=== PATIENT | female | born 1990 | race Caucasian/White ===

== ENCOUNTER 2019-08-27 15:36 | Emergency (ER) | payer OTHER, SELFPAY ==
--- NOTE | 2019-08-27 15:46 | ED.GENADULT ---
HPI - General Adult General Chief complaint: Upper Respiratory Infection Stated complaint: fever cough and poss uti Time Seen by Provider: 08/27/19 15:46 Source: patient, family and RN notes reviewed History of Present Illness HPI narrative: Patient is a 28-year-old female that presents the urgent care with complaints of fever, cough, UTI symptoms. Patient states that she has had difficulty emptying her bladder for approximately 1 year and has never followed up with her PCP. Patient states that her symptoms worsen within the last 2 months and she is recently noticed some urinary frequency. Patient also reports of low-grade fever and nonproductive cough which started 2 days ago. Patient denies any use of [id number] medication. No other acute complaints. No acute distress noted. Patient read the plan of care. Related Data Home Medications Medication Instructions Recorded Confirmed Adderall 08/27/19 albuterol sulfate 08/27/19 Allergies Allergy/AdvReac Type Severity Reaction Status Date / Time No Known Allergies Allergy Unverified 08/27/19 16:09 Review of Systems Review of Systems: Narrative: CONSTITUTIONAL: Reports a fever EYES: Denies visual changes, redness, or discharge. ENT: Denies rhinorrhea, congestion, sore throat, or otalgia. CARDIOVASCULAR: Denies chest pain, palpitations, or edema. RESPIRATORY: Reports of nonproductive cough without dyspnea GASTROINTESTINAL: Denies abdominal pain, nausea, vomiting, or diarrhea. GENITOURINARY: Reports of urinary frequency, difficulty emptying SKIN: Denies rash or itching. MUSCULOSKELETAL: Denies back pain, joint pain, or myalgia. NEUROLOGIC: Denies headache, numbness, or weakness. All other systems reviewed are negative, except as documented in HPI. [facility] Family History Family History (Updated 04/01/16 @ 16:32 by DOCTOR UNKNOWN) Mother Patient's mother is in good health Father Patient's father is in good health Sibling Patient's sister is in good health Social History Social History Smoking status: Never smoker Second hand tobacco smoke exposure: No Alcohol intake: never Comments At the time of my signature, I reviewed and agree with the nursing past medical, surgical, social, and family history. There is no relevant family history pertinent to the patient complaint. Exam Narrative: Exam Narrative: GENERAL: This is a well-nourished, well-developed patient, in no apparent distress. HEAD: normocephalic, atraumatic. EYES: PERRL. Sclera clear/white. Vision is grossly intact. EARS: External ears normal, auditory canals clear and without drainage, TMs normal without perforation. Hearing grossly intact. NOSE: External nose normal with no obvious nasal discharge, nares without redness, no rhinorrhea. THROAT: Mucous membranes moist, posterior pharynx clear. Moderate postnasal drainage NECK: Neck supple CARDIOVASCULAR: Regular rate and rhythm without murmurs, gallops, or rubs. RESPIRATORY: Clear to auscultation. Breath sounds equal bilaterally. No wheezes, rales, or rhonchi. GASTROINTESTINAL: Abdomen soft, nondistended. Bowel sounds are hyperactive. SKIN: warm, intact with no suspicious lesions or rash, good texture and turgor. NEURO: awake, alert, and oriented to person, place and time. There were no obvious focal neurologic abnormalities. EXTREMITIES: No clubbing, cyanosis, or edema. BACK: Negative bilateral CVA tenderness Course Vital Signs Vital signs: Vital Signs Temperature 99.7 F H 08/27/19 15:48 Pulse Rate 105 H 08/27/19 15:48 Respiratory Rate 16 08/27/19 15:48 Blood Pressure 131/86 08/27/19 15:48 Pulse Oximetry 100 08/27/19 15:48 Temperature 99.7 F H 08/27/19 15:48 Pulse Rate 105 H 08/27/19 15:48 Respiratory Rate 16 08/27/19 15:48 Blood Pressure 131/86 08/27/19 15:48 Pulse Oximetry 100 08/27/19 15:48 Reviewed Medical Decision Making MDM Narrative Medical decision making narrative: [place]
[2019-08-27 15:48] VITALS: BP 131/86; PULSE 105; RESP 16; TEMP 37.6; O2SAT 100
== END 2019-08-27 16:22 | disposition home or self-care (01) ==
PROVIDERS: Emergency Provider Nurse Practitioner Family; PCP Family Medicine
DX: J06.9 Acute upper respiratory infection, unspecified (principal); N39.0 Urinary tract infection, site not specified; J45.909 Unspecified asthma, uncomplicated
CPT/HCPCS: 81003; 87086; 99213; G0463

== ENCOUNTER 2019-10-23 07:27 | Emergency (ER) | payer OTHER, SELFPAY ==
--- NOTE | ~2019-10-23 | CT_ITS ---
EXAMINATION: CT abdomen pelvis wo con DATE: 10/23/2019 08:18 INDICATION: Nephrolithiasis presenting with left flank pain and hematuria. TECHNIQUE: Computed tomography (CT) of the abdomen and pelvis was performed without intravenous contr ast. Automated exposure control and iterative reconstruction technique were employed. The dose-length product was 164.56 mGy-cm. COMPARISON: 09/07/2017 FINDINGS: Lung bases are clear. Heart size is normal. No pericardial or pleural effusion. Small sliding-type hi atal hernia. Liver, gallbladder, spleen, pancreas, right kidney and bilateral adrenal glands are norm al. Mild left hydronephrosis with a 3 mm, currently nonobstructing stone positioned in the dependent aspect of the mildly dilated left renal pelvis. There is mild stranding in the region of the left ure teropelvic junction. The more distal left ureter appears unremarkable with no dilation or evident ure teral stones. The decompressed bladder appears normal. 4 cm left adnexal cyst. Right adnexa and uteru s are normal. Bowels including the appendix are normal. Minimal likely physiologic free fluid in the cul-de-sac. No free intraperineal gas. No pathologically enlarged abdominal or pelvic lymphadenopathy . Mild thoracolumbar dextrocurvature. Small fat-containing right inguinal hernia. IMPRESSION: 1. Mild left hydronephrosis with 3 mm, currently nonobstructing stone in the left renal pelvis. 2. Small sliding-type hiatal hernia. 3. 4.0 cm left adnexal cyst. 4. Small fat-containing right inguinal hernia. Reviewed, dictated and finalized at location A. IMPRESSION: 1. Mild left hydronephrosis with 3 mm, currently nonobstructing stone in the le ft renal pelvis. 2. Small sliding-type hiatal hernia. 3. 4.0 cm left adnexal cyst. 4. Small fat-containing right inguinal hernia.
[2019-10-23 07:31] VITALS: BP 163/99; PULSE 76; RESP 18; TEMP 36.7; O2SAT 99
--- NOTE | 2019-10-23 07:43 | ED.FEMALEGU ---
HPI - Female Genitourinary General Chief complaint: Urogenital-Female Stated complaint: left flank pain Time Seen by Provider: 10/23/19 07:32 History of Present Illness HPI Narrative: Patient is a 29-year-old female who presents ER with left-sided flank pain. Sudden onset at 5 AM this morning, sharp in quality. Associated with nausea and vomiting. No relief with Tylenol. No aggravating or alleviating factors that she can find. Similar to previous kidney stone she has had in the past. Increased urinary frequency. Related Data Home Medications Medication Instructions Recorded Confirmed Adderall 08/27/19 albuterol sulfate 08/27/19 Allergies Allergy/AdvReac Type Severity Reaction Status Date / Time No Known Allergies Allergy Verified 10/23/19 07:34 Review of Systems Review of Systems: All systems reviewed & are unremarkable except as noted in HPI and below Gastrointestinal: Gastrointestinal: Denies abdominal pain, Reports nausea and Reports vomiting Genitourinary: Genitourinary: Denies hematuria, Reports nocturia, Denies dysuria and Reports flank pain PMFSH Past Medical History Medical History (Updated 10/23/19 @ 10:02 by Collin Yi MD) Kidney stones Surgical History Surgical History (Updated 10/23/19 @ 07:45 by Collin Yi MD) History of bilateral fallopian tube excision Family History Family History Mother Patient's mother is in good health Father Patient's father is in good health Sibling Patient's sister is in good health Social History Social History Smoking status: Never smoker Second hand tobacco smoke exposure: No Alcohol intake: never Gender identity (if verbalized by the patient): Female Exam Narrative: Exam Narrative: GENERAL: Uncomfortable-appearing, well-nourished, and in no acute distress. HEAD: Normocephalic, atraumatic. CHEST: Clear to auscultation. No respiratory distress. HEART: Regular rate and rhythm. Normal peripheral pulses. ABDOMEN: Soft, nontender, nondistended. No CVA tenderness. EXTREMITIES: Normal range of motion. No edema. SKIN: Warm, dry, no rash. NEURO: Alert and oriented x3. PSYCH: Normal mood and affect. Course Course Emergency Course: Pain improved. Informed of results. Will give antibiotics for home. Vital Signs Vital signs: Vital Signs Temperature 98.1 F 10/23/19 07:31 Pulse Rate 76 10/23/19 07:31 Respiratory Rate 18 10/23/19 07:31 Blood Pressure 163/99 H 10/23/19 07:31 Pulse Oximetry 99 10/23/19 07:31 Temperature 98.1 F 10/23/19 07:31 Pulse Rate 60 10/23/19 09:35 Respiratory Rate 18 10/23/19 09:35 Blood Pressure 127/78 10/23/19 09:35 Pulse Oximetry 100 10/23/19 09:35 MDM - Female Genitourinary Lab Data Result diagrams: 10/23/19 07:44 10/23/19 07:44 Labs: Lab Results 10/23/19 10/23/19 10/23/19 Range/Units 07:41 07:44 07:44 WBC 11.0 H (4.5-10.0) K/mm3 RBC 4.39 (4.2-5.4) M/mm3 Hgb 12.9 (12.0-15.0) g/dL Hct 38.0 (37.0-47.0) % MCV 86.6 (80-100) fl MCH 29.4 (26-34) pg MCHC 33.9 (32-36) g/dl RDW 13.4 (11.5-14.5) % Plt Count 320 (150-375) k/mm3 MPV 8.9 (7.4-10.4) fl Immature Gran % (Auto) 0.4 (0-0.5) % Neut % (Auto) 73.2 H (45.5-73.1) % Lymph % (Auto) 18.7 (18.3-44.2) % Churchill % (Auto) 6.6 (2.6-8.5) % Eos % (Auto) 0.8 (0-4.4) % Baso % (Auto) 0.3 (0.2-1.2) % Lymph # (Auto) 2.05 (0.9-3.2) K/mm3 Churchill # (Auto) 0.7 H (0.1-0.6) K/mm3 Eos # (Auto) 0.1 (0-0.3) K/mm3 Baso # (Auto) 0.0 (0.0-0.1) K/mm3 Abs Immat Gran (auto) 0.04 H (0.00-0.031) K/mm3 Absolute Neuts (auto) 8.1 H (1.3-6.7) K/mm3 Absolute Nucleated RBC 0.0 (0.0-0.012) K/mm3 Nucleated RBC % 0.0 (0.0-0.2) % Sodium 137 (137-145) mmol/L Potassium 3.9 (3.4
[2019-10-23 07:49] LABS: Basophils Percent Auto 0.3 % (0.2-1.2); Eosinophils Absolute Auto 0.1 K/mm3 (0-0.3); Eosinophils Percent Auto 0.8 % (0-4.4); Hemoglobin 12.9 g/dL (12.0-15.0); Immature Granulocyte Absolute 0.04 K/mm3 (0.00-0.031); Immature Granulocyte Percent A 0.4 % (0-0.5); Lymphocytes Absolute Auto 2.05 K/mm3 (0.9-3.2); Lymphocytes Percent Auto 18.7 % (18.3-44.2); Mean Corpuscular HGB Conc 33.9 g/dl (32-36); Mean Corpuscular Hemoglobin 29.4 pg (26-34); Mean Corpuscular Volume 86.6 fl (80-100); Mean Platelet Volume 8.9 fl (7.4-10.4); Monocytes Absolute Auto 0.7 K/mm3 (0.1-0.6); Monocytes Percent Auto 6.6 % (2.6-8.5); Neutrophils Absolute Auto 8.1 K/mm3 (1.3-6.7); Neutrophils Percent Auto 73.2 % (45.5-73.1); Platelet Count Result 320 k/mm3 (150-375); Red Blood Count 4.39 M/mm3 (4.2-5.4); Red Cell Distribution Width 13.4 % (11.5-14.5)
[2019-10-23] MEDS: MORPHINE SULFATE 4 MG/ML INJ IV PUSH (07:50)
[2019-10-23] MEDS: ONDANSETRON INJ 4 MG/2 ML VIAL IV PUSH (07:50)
[2019-10-23] MEDS: SODIUM CHLORIDE 0.9% IV 1,000 ML 999 ML IV CONT (07:50)
[2019-10-23 07:58] LABS: Add Urine Microscopic? YES; Appearance Urine Cloudy (Clear); Bacteria Urine Trace /hpf; Bilirubin Urine Negative (Negative); Blood Urine 1+ (Negative); Color Urine Yellow (Yellow); Glucose Urine UA Negative (Negative); Ketones Urine 1+ mg/dL (Negative); Leukocyte Esterase Ur 3+ LEU/UL (Negative); Mucus Urine Heavy /lpf; Nitrate Urine Negative (Negative); Protein Urine 1+ mg/dL (Negative); RBC Urine 51-75 /hpf (0-2); Specific Grav Ur 1.029 (1.001-1.035); Squamous Epithelial Cell Urine Many /hpf (Few); Urobilinogen Urine Negative mg/dL (<2.0); WBC Urine 21-30 /hpf
[2019-10-23 08:01] LABS: Blood Urea Nitrogen 9 mg/dL (7-17); Calcium 9.4 mg/dL (8.4-10.2); Carbon Dioxide 23 mmol/L (22-30); Chloride 105 mmol/L (98-107); Estimated Glomerular Filt Rate > 60; Glucose 108 mg/dL (65-105); Potassium 3.9 mmol/L (3.4-5.0); Sodium 137 mmol/L (137-145)
[2019-10-23 09:35] VITALS: BP 127/78; PULSE 60; RESP 18; O2SAT 100
[2019-10-23 10:15] VITALS: BP 124/56; PULSE 70; RESP 12; O2SAT 99
== END 2019-10-23 10:24 | disposition home or self-care (01) ==
PROVIDERS: Emergency Provider Emergency Medicine; PCP Family Medicine
DX: N39.0 Urinary tract infection, site not specified (principal); Z87.442 Personal history of urinary calculi; N13.2 Hydronephrosis with renal and ureteral calculous obstruction; K44.9 Diaphragmatic hernia without obstruction or gangrene; K40.90 Unilateral inguinal hernia, without obstruction or gangrene, not specified as recurrent; N94.89 Other specified conditions associated with female genital organs and menstrual cycle
CPT/HCPCS: 36415; 74176; 80048; 81001; 81025; 85025; 87086; 87088; 96361; 96374; 96375; 99284; J2270; J2405; J7030

== ENCOUNTER 2019-11-16 12:07 | Outpatient (CLI) | payer OTHER, SELFPAY ==
--- NOTE | ~2019-11-16 | XR_ITS ---
EXAMINATION: XR abdomen/kub 1V INDICATION: Abdominal pain TECHNIQUE: Supine views of the abdomen were obtained on 2 radiographs. COMPARISON: CT, 10/23/2019 FINDINGS: A 3 mm stone projects in the expected location of the left renal pelvis, similar to the com parison examination. A moderate volume of colonic stool is present. There are no dilated loops of bow el. IMPRESSION: 1. 3 mm stone projecting in the expected location of the left renal pelvis. Reviewed, dictated and finalized at location A.
== END 2019-11-16 12:08 | disposition home or self-care (01) ==
LOC: ANHIMG 12:14
PROVIDERS: PCP Family Medicine; Visit Provider Physician Assistant
DX: R10.9 Unspecified abdominal pain (principal); N20.0 Calculus of kidney
CPT/HCPCS: 74018

== ENCOUNTER 2019-12-26 12:00 | Outpatient (CLI) | payer OTHER, SELFPAY ==
--- NOTE | ~2019-12-26 | XR_ITS ---
EXAMINATION: XR abdomen/kub 1V INDICATION: Left-sided kidney stone TECHNIQUE: Supine views of the abdomen were obtained on 2 radiographs. COMPARISON: 11/16/2019 FINDINGS: Bowel contents project over the kidneys limiting sensitivity for renal stones. A previously described 3 mm stone projecting over the left renal pelvis is not definitely identified. No stones a re seen along the expected courses of the ureters or within the bladder. The bowel gas pattern is nor mal. IMPRESSION: 1. No definite urinary tract calculi seen, kidney somewhat obscured by bowel contents. Reviewed, dictated and finalized at location A. IMPRESSION: 1. No definite urinary tract calculi seen, kidney somewhat obscured by bowel co ntents.
== END 2019-12-26 12:01 | disposition home or self-care (01) ==
PROVIDERS: PCP Family Medicine; Visit Provider Nurse Practitioner Adult Health
DX: N20.0 Calculus of kidney (principal)
CPT/HCPCS: 74018

== ENCOUNTER 2020-01-02 11:16 | Outpatient (CLI) | payer OTHER, SELFPAY ==
--- NOTE | ~2020-01-02 | XR_ITS ---
XR abdomen/kub 1V 01/02/2020 11:38 Indication: Left flank pain Procedure: KUB Comparison: 12/26/2019 Findings: There is a small left renal stone. Bowel gas pattern is nonobstructive. Moderate colonic fe esau loading. No acute osseous abnormality. Impression: 1: Left nephrolithiasis. Reviewed, dictated and finalized at location B. Impression: 1: Left nephrolithiasis.
== END 2020-01-02 11:17 | disposition home or self-care (01) ==
LOC: ANHIMG 11:21
PROVIDERS: PCP Family Medicine; Visit Provider Nurse Practitioner Adult Health
DX: N20.0 Calculus of kidney (principal)
CPT/HCPCS: 74018

== ENCOUNTER 2020-05-16 11:44 | Emergency (ER) | payer OTHER, SELFPAY ==
--- NOTE | ~2020-05-16 | XR_ITS ---
XR chest 1V portable DATE: 05/16/2020 12:46 INDICATION: Cough, burning feeling and lungs TECHNIQUE: Portable AP chest on 05/16/2020 at 1232 hours COMPARISON: 12/06/2018 PA and lateral chest FINDINGS: Normal heart size. No hilar or mediastinal enlargement. No pulmonary infiltrate or consolid ation, pleural effusion or pulmonary vascular congestion or pneumothorax. IMPRESSION: No active cardiopulmonary disease Reviewed, dictated and finalized at location A. PHONE QUOTATION CLERK
[2020-05-16 12:01] VITALS: BP 114/86; PULSE 102; RESP 15; TEMP 36.9; O2SAT 100
--- NOTE | 2020-05-16 12:02 | ED.URI ---
HPI - URI/Sore Throat General Chief Complaint: Upper Respiratory Infection Stated Complaint: diff breathing/n/d Time Seen by Provider: 05/16/20 12:02 Source: patient Mode of arrival: ambulatory Limitations: no limitations History of Present Illness HPI Narrative: Patient is a 29 yo female with a history of asthma who presents for evaluation of congestion, myalgias, nausea and diarrhea. Patient denying any chest pain or abdominal pain. She does report some shortness of breath this seems different than her typical asthma. She denies any wheezing. Patient states she is nearly out of her current albuterol inhaler. She denies fever today. She states her daughter has been sick with similar symptoms and is pending the results of her Covid test. Patient denies any loss of sense of taste or smell but does report decreased oral intake due to nausea and lack of appetite. She denies dysuria or hematuria. She reports watery diarrhea without blood or mucus present. No pleuritic pain. No rashes. Related Data Home Medications Medication Instructions Recorded Confirmed albuterol sulfate [ProAir HFA] 1 inh INHALATION QID PRN 01/09/20 01/09/20 dextroamphetamine-amphetamine 30 mg PO DAILY 01/09/20 01/09/20 [Adderall XR] dextroamphetamine-amphetamine 10 mg PO BID 01/09/20 01/09/20 [Adderall] venlafaxine [Effexor XR] 150 mg PO QPM 01/09/20 01/09/20 Allergies Allergy/AdvReac Type Severity Reaction Status Date / Time hydrocodone [From Vicodin] AdvReac Intermediate Nausea and Verified 01/09/20 10:52 Vomiting Review of Systems Review of Systems: Narrative: CONSTITUTIONAL: Denies fever, reports intermittent chills EYES: Denies visual changes, redness, or discharge. ENT: Reports rhinorrhea and congestion CARDIOVASCULAR: Denies chest pain, palpitations, or edema. RESPIRATORY: Reports dry cough and intermittent shortness of breath, worse with exertion GASTROINTESTINAL: Denies abdominal pain, reports nausea and diarrhea GENITOURINARY: Denies dysuria or hematuria. SKIN: Denies rash or itching. MUSCULOSKELETAL: Denies back pain, joint pain, reports myalgias NEUROLOGIC: Denies headache, numbness, reports feeling weak PMFSH Past Medical History Medical History Asthma Kidney stones Surgical History Surgical History History of bilateral fallopian tube excision Family History Family History Mother Patient's mother is in good health Father Patient's father is in good health Sibling Patient's sister is in good health Social History Social History Smoking status: Never smoker Second hand tobacco smoke exposure: No Alcohol intake: never Substance use: never Substance use type: does not use Gender identity (if verbalized by the patient): Female Spiritual care concerns: No Exam Narrative: Exam Narrative: GENERAL: Awake, alert, conversant HEAD: Normocephalic, atraumatic. EYES: PERRLA and EOMI. ENT: Nares clear, no rhinorrhea or epistaxis. Mucous membranes moist. NECK: Supple. CHEST: No respiratory distress, breathing even and non labored, lungs are clear to auscultation bilaterally, no wheezing HEART: Regular rate, sinus rhythm ABDOMEN:Non distended, non tender EXTREMITIES: Normal range of motion. No edema. SKIN: Warm, dry, no rash. NEURO:No focal deficits. Alert and oriented x3 Course Vital Signs Vital signs: Vital Signs Temperature 36.9 C 05/16/20 12:01 Pulse Rate 102 H 05/16/20 12:01 Respiratory Rate 15 05/16/20 12:01 Blood Pressure 114/86 05/16/20 12:01 Pulse Oximetry 100 05/16/20 12:01 Temperature 36.9 C 05/16/20 12:01 Pulse Rate 102 H 05/16/20 12:01 Respiratory Rate 15 05/16/20 12:01 Blood Pressure 114/86 05/16/20 12:01 Pulse Oximetry 100
[2020-05-16 12:06] VITALS: O2SAT 100
[2020-05-16] MEDS: ACETAMINOPHEN 500 MG TABLET 1000 MG PO (12:21)
[2020-05-16] MEDS: ONDANSETRON HCL ODT 4 MG TABLET PO (12:21)
[2020-05-16 12:41] LABS: Basophils Percent Auto 0.1 % (0.2-1.2); Eosinophils Absolute Auto 0.1 K/mm3 (0-0.3); Eosinophils Percent Auto 0.9 % (0-4.4); Hematocrit 38.6 % (37.0-47.0); Hemoglobin 12.5 g/dL (12.0-15.0); Immature Granulocyte Absolute 0.06 K/mm3 (0.00-0.031); Immature Granulocyte Percent A 0.4 % (0-0.5); Lymphocytes Absolute Auto 1.29 K/mm3 (0.9-3.2); Lymphocytes Percent Auto 8.8 % (18.3-44.2); Mean Corpuscular HGB Conc 32.4 g/dl (32-36); Mean Corpuscular Hemoglobin 28.2 pg (26-34); Mean Corpuscular Volume 87.1 fl (80-100); Mean Platelet Volume 8.2 fl (7.4-10.4); Monocytes Absolute Auto 0.6 K/mm3 (0.1-0.6); Neutrophils Absolute Auto 12.6 K/mm3 (1.3-6.7); Neutrophils Percent Auto 85.8 % (45.5-73.1); Platelet Count Result 405 k/mm3 (150-375); Red Blood Count 4.43 M/mm3 (4.2-5.4); Red Cell Distribution Width 13.7 % (11.5-14.5); White Blood Count 14.7 K/mm3 (4.5-10.0)
[2020-05-16 13:05] LABS: Alanine Aminotransferase 45 U/L (4-35); Alkaline Phosphatase 119 U/L (38-126); Anion Gap 10 mmol/L (8-16); Aspartate Amino Transferase 35 U/L (14-36); Bilirubin,Total 0.3 mg/dL (0.2-1.3); Blood Urea Nitrogen 13 mg/dL (7-17); Carbon Dioxide 24 mmol/L (22-30); Chloride 105 mmol/L (98-107); Estimated CRCL calculation 122 ml/min; Estimated Glomerular Filt Rate > 60; Glucose 114 mg/dL (65-105); Potassium 3.8 mmol/L (3.4-5.0); Sodium 139 mmol/L (137-145)
[2020-05-17 17:05] LABS: SARS-CoV-2 RNA PCR Negative
== END 2020-05-16 13:31 | disposition home or self-care (01) ==
PROVIDERS: Emergency Provider Emergency Medicine; PCP Family Medicine
DX: J06.9 Acute upper respiratory infection, unspecified (principal); Z20.828 Contact with and (suspected) exposure to other viral communicable diseases; J45.909 Unspecified asthma, uncomplicated; Z87.442 Personal history of urinary calculi
CPT/HCPCS: 36415; 71045; 80053; 85025; 87635; 87804; 99283; A9270; C9803; U0003

== ENCOUNTER 2021-02-12 01:46 | Day surgery (SDC) | payer OTHER, SELFPAY ==
[2021-01-31 15:04] VITALS: BMI 32.3
--- NOTE | 2021-02-11 13:25 | PM.HPGS ---
History of Present Illness History of Present Illness Consent: Risks, benefits, and alternatives have been discussed and questions answered. Patient agrees to proceed with procedure. Chief complaint: GERD Narrative: Wendi De La Vega is a 30 year old female With a long history of acid reflux symptoms. She has been on famotidine for the past year and also has taken omeprazole in the past year. Occasionally she has some discomfort with swallowing. She becomes gaggy and her throat feels dry. This can lead to vomiting. Denies food getting stuck. Review of Systems Review of Systems: All systems reviewed & are unremarkable except as noted in HPI and below PMFSH Past Medical History Medical History Anxiety Asthma Depression GERD (gastroesophageal reflux disease) History of nephrolithotomy with removal of calculi Hypertension Kidney stones Obesity (BMI 30.0-34.9) Surgical History Surgical History History of bilateral fallopian tube excision Family History Family History Mother Patient's mother is in good health Father Patient's father is in good health Sibling Patient's sister is in good health Social History Social History Smoking status: Never smoker Second hand tobacco smoke exposure: No Alcohol intake: never Substance use: never Substance use type: does not use Living arrangements: with family Gender identity (if verbalized by the patient): Female Spiritual care concerns: No Meds Home Medications and Allergies Home Medications Medication Instructions Recorded Confirmed Type dextroamphetamine-amphetamine 30 mg PO DAILY 01/09/20 01/31/21 History [Adderall XR] dextroamphetamine-amphetamine 10 mg PO BID 01/09/20 01/31/21 History [Adderall] venlafaxine [Effexor XR] 150 mg PO QPM 01/09/20 01/31/21 History acetaminophen 500 mg PO Q6H PRN #30 cap 05/16/20 01/31/21 Rx venlafaxine 75 mg tablet,extended 75 mg PO QPM 11/01/20 01/31/21 History release 24 hr albuterol sulfate 90 mcg/actuation 1 inh INHALATION Q4H PRN #18 gm 11/07/20 01/31/21 Rx aerosol inhaler lisinopril 2.5 mg tablet 2.5 mg PO DAILY #30 tablet 12/03/20 01/31/21 Rx budesonide-formoterol HFA 160 2 puff INHALATION BID #10.2 g 01/10/21 01/31/21 Rx mcg-4.5 mcg/actuation aerosol inhaler buspirone 15 mg tablet 15 mg PO BID 01/17/21 01/31/21 History famotidine 20 mg tablet 20 mg PO DAILY 01/17/21 01/31/21 History omeprazole 10 mg capsule,delayed 10 mg PO DAILY 01/17/21 01/31/21 History release Allergies Allergy/AdvReac Type Severity Reaction Status Date / Time hydrocodone [From Vicodin] AdvReac Intermediate Nausea and Verified 02/12/21 11:21 Vomiting Exam Const: General: alert Orientation/consciousness: patient oriented x3 Resp: Auscultation: clear to auscultation bilaterally Cardio: Rhythm: regular rhythm GI: GI Palp: Yes Soft to palpation and No Tenderness to palpation present (GI) Neuro: General: patient oriented x3 Assessment and Plan Assessment and plan (1) GERD (gastroesophageal reflux disease): Qualifiers: Esophagitis presence: without esophagitis Qualified Code(s): K21.9 - Gastro-esophageal reflux disease without esophagitis Code(s): K21.9 - Gastro-esophageal reflux disease without esophagitis Status: Acute Assessment and Plan: EGD with possible biopsy or dilatation or cautery.
[2021-02-12 11:24] VITALS: BMI 32.7
[2021-02-12 11:27] VITALS: BP 144/88; PULSE 91; RESP 14; TEMP 36.3; O2SAT 99
[2021-02-12] MEDS: LACTATED RINGERS 1,000 ML 150 ML IV CONT (11:38)
--- NOTE | 2021-02-12 11:46 | WPDANESEPPF ---
Anes - Initial Pre Proc Eval Procedure: Operation Date: 02/12/21 12:00 Proposed Procedures p Esophagogastroduodenoscopy - Leonardo Suero MD Date/Time: 02/12/21 11:46 Surgeon: Leonardo Suero MD Pre Op Diagnosis: GERD Patient Data Age: 30 Gender: F Height: 1.52 m Weight: 76 kg Last Vital Signs Temp 36.3 C L 02/12/21 11:27 Pulse 91 02/12/21 11:27 Resp 14 02/12/21 11:27 BP 144/88 H 02/12/21 11:27 Pulse Ox 99 02/12/21 11:27 Allergies Allergy/AdvReac Type Severity Reaction Status Date / Time hydrocodone [From Vicodin] AdvReac Intermediate Nausea and Verified 02/12/21 11:21 Vomiting Home Medications Medication Instructions Recorded Confirmed Type dextroamphetamine-amphetamine 30 mg PO DAILY 01/09/20 01/31/21 History [Adderall XR] dextroamphetamine-amphetamine 10 mg PO BID 01/09/20 01/31/21 History [Adderall] venlafaxine [Effexor XR] 150 mg PO QPM 01/09/20 01/31/21 History acetaminophen 500 mg PO Q6H PRN #30 cap 05/16/20 01/31/21 Rx venlafaxine 75 mg tablet,extended 75 mg PO QPM 11/01/20 01/31/21 History release 24 hr albuterol sulfate 90 mcg/actuation 1 inh INHALATION Q4H PRN #18 gm 11/07/20 01/31/21 Rx aerosol inhaler lisinopril 2.5 mg tablet 2.5 mg PO DAILY #30 tablet 12/03/20 01/31/21 Rx budesonide-formoterol HFA 160 2 puff INHALATION BID #10.2 g 01/10/21 01/31/21 Rx mcg-4.5 mcg/actuation aerosol inhaler buspirone 15 mg tablet 15 mg PO BID 01/17/21 01/31/21 History famotidine 20 mg tablet 20 mg PO DAILY 01/17/21 01/31/21 History omeprazole 10 mg capsule,delayed 10 mg PO DAILY 01/17/21 01/31/21 History release Patient hx anesthesia problems: none Family hx anesthesia problems: none PMFSH Past Medical History Medical History Anxiety Asthma Depression GERD (gastroesophageal reflux disease) History of nephrolithotomy with removal of calculi Hypertension Kidney stones Obesity (BMI 30.0-34.9) Surgical History Surgical History History of bilateral fallopian tube excision Family History Family History Mother Patient's mother is in good health Father Patient's father is in good health Sibling Patient's sister is in good health Social History Social History Smoking status: Never smoker Second hand tobacco smoke exposure: No Alcohol intake: never Substance use: never Substance use type: does not use Living arrangements: with family Gender identity (if verbalized by the patient): Female Spiritual care concerns: No Anes - Eval Final PreProcedure Day of Procedure 02/12/21 11:46 Patient weight: obese Heart: regular rate and rhythm Lungs: clear to auscultation Airway: Mallampati scale class II Neurological: alert and oriented Last oral intake: >/= 8 hours ASA classification: III Emergent: no Anesthetic plan: proceed Anesthesia type and monitoring: general GIVS and standard monitoring Informed Consent: The patient's anesthetic plan and its attendant risks and benefits were discussed with the patient/family/POA. Questions were solicited and answers provided to the satisfaction of the patient/family/POA.
[2021-02-12 12:17] VITALS: BP 155/115; PULSE 94; RESP 15; O2SAT 98
[2021-02-12 12:27] VITALS: BP 143/74; PULSE 86; RESP 16; O2SAT 99
[2021-02-12 12:37] VITALS: BP 123/80; PULSE 78; RESP 16; O2SAT 99
== END 2021-02-12 13:05 | disposition home or self-care (01) ==
PROVIDERS: PCP Family Medicine; Visit Provider Internal Medicine Gastroenterology
PROC: 0DJ08ZZ Inspection of Upper Intestinal Tract, Via Natural or Artificial Opening Endoscopic (ICD-10-PCS; CPT 43235; principal; 2021-02-12 12:00)
DX: K21.00 Gastro-esophageal reflux disease with esophagitis, without bleeding (principal); K44.9 Diaphragmatic hernia without obstruction or gangrene; F41.8 Other specified anxiety disorders; J45.909 Unspecified asthma, uncomplicated; I10 Essential (primary) hypertension; E66.9 Obesity, unspecified; Z68.32 Body mass index [BMI] 32.0-32.9, adult; Z79.51 Long term (current) use of inhaled steroids
CPT/HCPCS: 43239; 88305; J2704; J7120

== ENCOUNTER 2021-05-12 01:19 | Day surgery (SDC) | payer OTHER, SELFPAY ==
[2021-04-28 13:37] VITALS: BMI 32.3
--- NOTE | 2021-05-09 14:27 | PM.HPGS ---
History of Present Illness History of Present Illness Consent: Risks, benefits, and alternatives have been discussed and questions answered. Patient agrees to proceed with procedure. Chief complaint: ulcer, esophagitis Narrative: Wendi De La Vega is a 30 year old female who is here for EGD to assess healing of severe ulcerative esophagitis that was found 3 months ago. She has been taking omeprazole 40 mg daily Review of Systems Review of Systems: All systems reviewed & are unremarkable except as noted in HPI and below PMFSH Past Medical History Medical History Anxiety Asthma Depression GERD (gastroesophageal reflux disease) History of nephrolithotomy with removal of calculi Hypertension Kidney stones Obesity (BMI 30.0-34.9) Surgical History Surgical History History of bilateral fallopian tube excision Family History Family History Mother Patient's mother is in good health Father Patient's father is in good health Sibling Patient's sister is in good health Social History Social History Smoking status: Never smoker Second hand tobacco smoke exposure: No Alcohol intake: never Substance use: never Substance use type: does not use Living arrangements: with family Gender identity (if verbalized by the patient): Female Spiritual care concerns: No Meds Home Medications and Allergies Home Medications Medication Instructions Recorded Confirmed Type dextroamphetamine-amphetamine 30 mg PO DAILY 01/09/20 04/28/21 History [Adderall XR] dextroamphetamine-amphetamine 10 mg PO BID 01/09/20 04/28/21 History [Adderall] venlafaxine [Effexor XR] 150 mg PO QPM 01/09/20 04/28/21 History acetaminophen 500 mg PO Q6H PRN #30 cap 05/16/20 04/28/21 Rx albuterol sulfate 90 mcg/actuation 1 inh INHALATION Q4H PRN #18 gm 11/07/20 04/28/21 Rx aerosol inhaler budesonide-formoterol HFA 160 2 puff INHALATION BID #10.2 g 01/10/21 04/28/21 Rx mcg-4.5 mcg/actuation aerosol inhaler buspirone 15 mg tablet 15 mg PO BID 01/17/21 04/28/21 History omeprazole 40 mg PO DAILY #30 cap 02/12/21 04/28/21 Rx albuterol sulfate 0.63 mg/3 mL 0.63 mg INHALATION Q4-6H PRN #75 ml 04/25/21 04/28/21 Rx solution for nebulization lisinopril 2.5 mg tablet 2.5 mg PO DAILY #30 tablet 05/08/21 05/12/21 Rx Allergies Allergy/AdvReac Type Severity Reaction Status Date / Time hydrocodone [From Vicodin] AdvReac Intermediate Nausea and Verified 05/12/21 06:51 Vomiting Exam Const: General: alert Orientation/consciousness: patient oriented x3 Resp: Auscultation: clear to auscultation bilaterally Cardio: Rhythm: regular rhythm GI: GI Palp: Yes Soft to palpation and No Tenderness to palpation present (GI) Neuro: General: patient oriented x3 Assessment and Plan Assessment and plan (1) Erosive esophagitis: Code(s): K22.10 - Ulcer of esophagus without bleeding Status: Acute Assessment and Plan: EGD with possible biopsy or dilatation or cautery.
[2021-05-12 06:52] VITALS: BP 133/84; PULSE 92; RESP 18; TEMP 36.1; O2SAT 99
[2021-05-12] MEDS: LACTATED RINGERS 1,000 ML 150 ML IV CONT (07:10)
--- NOTE | 2021-05-12 07:18 | WPDANESEPPF ---
Anes - Initial Pre Proc Eval Procedure: Operation Date: 05/12/21 08:00 Proposed Procedures p Esophagogastroduodenoscopy - Leonardo Suero MD Date/Time: 05/12/21 07:18 Surgeon: Leonardo Suero MD Pre Op Diagnosis: ulcer, esophagitis Patient Data Age: 30 Gender: F Height: 1.52 m Weight: 79.8 kg Last Vital Signs Temp 36.1 C L 05/12/21 06:52 Pulse 92 05/12/21 06:52 Resp 18 05/12/21 06:52 BP 133/84 05/12/21 06:52 Pulse Ox 99 05/12/21 06:52 Allergies Allergy/AdvReac Type Severity Reaction Status Date / Time hydrocodone [From Vicodin] AdvReac Intermediate Nausea and Verified 05/12/21 06:51 Vomiting Home Medications Medication Instructions Recorded Confirmed Type dextroamphetamine-amphetamine 30 mg PO DAILY 01/09/20 04/28/21 History [Adderall XR] dextroamphetamine-amphetamine 10 mg PO BID 01/09/20 04/28/21 History [Adderall] venlafaxine [Effexor XR] 150 mg PO QPM 01/09/20 04/28/21 History acetaminophen 500 mg PO Q6H PRN #30 cap 05/16/20 04/28/21 Rx albuterol sulfate 90 mcg/actuation 1 inh INHALATION Q4H PRN #18 gm 11/07/20 04/28/21 Rx aerosol inhaler budesonide-formoterol HFA 160 2 puff INHALATION BID #10.2 g 01/10/21 04/28/21 Rx mcg-4.5 mcg/actuation aerosol inhaler buspirone 15 mg tablet 15 mg PO BID 01/17/21 04/28/21 History omeprazole 40 mg PO DAILY #30 cap 02/12/21 04/28/21 Rx albuterol sulfate 0.63 mg/3 mL 0.63 mg INHALATION Q4-6H PRN #75 ml 04/25/21 04/28/21 Rx solution for nebulization lisinopril 2.5 mg tablet 2.5 mg PO DAILY #30 tablet 05/08/21 05/12/21 Rx Patient hx anesthesia problems: none Family hx anesthesia problems: none Results Review: All pre-operative results and documents have been reviewed as part of the pre-operative evaluation. [facility] Past Medical History Medical History Anxiety Asthma Depression GERD (gastroesophageal reflux disease) History of nephrolithotomy with removal of calculi Hypertension Kidney stones Obesity (BMI 30.0-34.9) Surgical History Surgical History History of bilateral fallopian tube excision Family History Family History Mother Patient's mother is in good health Father Patient's father is in good health Sibling Patient's sister is in good health Social History Social History Smoking status: Never smoker Second hand tobacco smoke exposure: No Alcohol intake: never Substance use: never Substance use type: does not use Living arrangements: with family Gender identity (if verbalized by the patient): Female Spiritual care concerns: No Anes - Eval Final PreProcedure Day of Procedure 05/12/21 07:18 Patient weight: obese Heart: regular rate and rhythm Lungs: clear to auscultation and normal air movement Airway: Mallampati scale class II Neurological: alert and oriented Last oral intake: >/= 8 hours ASA classification: III Emergent: no Anesthetic plan: proceed Anesthesia type and monitoring: general GIVS Results Review: All pre-operative results and documents have been reviewed as part of the pre-operative evaluation. Informed Consent: The patient's anesthetic plan and its attendant risks and benefits were discussed with the patient/family/POA. Questions were solicited and answers provided to the satisfaction of the patient/family/POA.
[2021-05-12 08:03] VITALS: BP 140/65; PULSE 94; RESP 26; O2SAT 94
[2021-05-12 08:13] VITALS: BP 120/65; PULSE 82; RESP 18; O2SAT 96
[2021-05-12 08:23] VITALS: BP 106/75; PULSE 82; RESP 30; O2SAT 100
== END 2021-05-12 08:33 | disposition home or self-care (01) ==
PROVIDERS: PCP Family Medicine; Visit Provider Internal Medicine Gastroenterology
PROC: 0DJ08ZZ Inspection of Upper Intestinal Tract, Via Natural or Artificial Opening Endoscopic (ICD-10-PCS; CPT 43235; principal; 2021-05-12 08:00)
DX: Z09 Encounter for follow-up examination after completed treatment for conditions other than malignant neoplasm (principal); K21.00 Gastro-esophageal reflux disease with esophagitis, without bleeding; K44.9 Diaphragmatic hernia without obstruction or gangrene; K31.84 Gastroparesis; Z87.19 Personal history of other diseases of the digestive system; I10 Essential (primary) hypertension; F41.8 Other specified anxiety disorders; J45.909 Unspecified asthma, uncomplicated; Z79.51 Long term (current) use of inhaled steroids; E66.9 Obesity, unspecified; Z68.34 Body mass index [BMI] 34.0-34.9, adult
CPT/HCPCS: 43239; 88305; J2704; J7120

== ENCOUNTER 2021-08-05 08:08 | Outpatient (CLI) | payer OTHER, SELFPAY ==
--- NOTE | ~2021-08-05 | NM_ITS ---
EXAM: NM gastric emptying study DATE: 08/05/2021 14:15 INDICATION: Foreign body in stomach, initial encounter. TECHNIQUE: A gastric emptying study was performed using the methodology of Aracelis CANDELARIA, et al. J Nucl Med 2007; 48:568-572. The patient was given a meal consisting of 2 scrambled eggs labeled with 0.962 mCi Tc-99m sulfur colloid, 2 slices of toast, two packages of jam, and approximately 120 mL of water . Simultaneous anterior and posterior 1-min images of the abdomen were obtained with the patient supi ne at multiple time points over a total period of 4 hours. The geometric mean of anterior and posteri or views was determined, and the percentage retention was calculated for each time point. COMPARISON: CT abdomen and pelvis 10/23/2019 FINDINGS: Gastric retention of the radiotracer-labeled meal was 71%, 51%, and 13% at the 1-hour, 2-h our, and 4-hour time points, respectively. With this technique, apparent rapid gastric emptying is celestin ggested by <30% gastric retention at 1 hour. Delayed gastric emptying is defined by gastric retention of >90% at 1 hour, >60% retention at 2 hours, or >10% retention at 4 hours. IMPRESSION: 1. Delayed gastric emptying. Reviewed, dictated and finalized at location A. L DEVELOPER
== END 2021-08-05 08:09 | disposition home or self-care (01) ==
LOC: ANHIMG 08:11
PROVIDERS: PCP Family Medicine; Visit Provider Internal Medicine Gastroenterology
DX: T18.2XXA Foreign body in stomach, initial encounter (principal)
CPT/HCPCS: 78264; A9541

== ENCOUNTER 2024-12-27 08:11 | Outpatient (CLI) | payer OTHER, SELFPAY ==
--- NOTE | ~2024-12-27 | XR_ITS ---
EXAM/ PROCEDURE: XR shoulder RT min 2V - 12/27/2024 9:12 CDT HISTORY: 34 years old Female with Pain in right shoulder swollen lymph nodes X3 MONTHS COMPARISON: None available TECHNIQUE: Three view(s) FINDINGS/ IMPRESSION: There are no fractures or dislocations.Joint spaces are within normal limits. Reviewed, dictated and finalized at location A.
--- NOTE | ~2024-12-27 | US_ITS ---
US axilla 12/27/2024 08:40 Indication: Palpable bilateral axillary abnormalities Procedure: High-resolution bilateral axillary ultrasound Comparison: No prior studies for comparison. Findings: There are enlarged bilateral axillary lymph nodes, largest on the right measuring 2.7 x 2.3 x 1.7 cm in largest on the left measuring 3.7 x 2.7 x 2.8 cm. In the left axilla there is a irregula r shaped hypoechoic mass measuring 1.6 x 0.9 x 0.5 cm with internal vascularity. Impression: 1: Irregular shaped hypoechoic superficial mass of the left axilla measuring 1.6 cm which is atypical for a lymph node. Recommend further evaluation with biopsy. 2: Enlarged bilateral axillary lymph nodes, nonspecific, although most likely reactive with persiste nt fatty hilum. BI-RADS CATEGORY 4-SUSPICIOUS ABNORMALITY Reviewed, dictated and finalized at location A. Impression: 1: Irregular shaped hypoechoic superficial mass of the left axilla measuring 1. 6 cm which is atypical for a lymph node. Recommend further evaluation with biop sy. 2: Enlarged bilateral axillary lymph nodes, nonspecific, although most likely reactive with persistent fatty hilum. BI-RADS CATEGORY 4-SUSPICIOUS ABNORMALITY
--- NOTE | ~2024-12-27 | XR_ITS ---
EXAM/PROCEDURE: XR chest 2V - 12/27/2024 9:12 CDT HISTORY: 34 years old Female with swollen lymph nodes on rt side axillary X3 months; hx asthma TECHNIQUE: Two view(s) of the chest. COMPARISON: None available. FINDINGS: LUNGS/ PLEURA: No focal consolidation. No appreciable pneumothorax or large pleural effusion. HEART/ MEDIASTINUM: Heart appears normal in size. BONES: No acute osseous abnormality. OTHER: Visualized upper abdomen is unremarkable. IMPRESSION: No acute process. Reviewed, dictated and finalized at location A. IMPRESSION: No acute process.
--- OUTSIDE RECORDS SUMMARY | 2024-12-27 08:15 | XMS_ITS | Referral Summary ---
[facility] Organization [facility] Address [address] [place] [address] Care Team Providers Care Remelt Operator Name Role Phone Vanessa Zaidi MD Primary Care Provider [phone] Allergies Active Allergy Reactions Criticality Noted Date Comments Dog Dander Other (See comments) Low 11/26/2017 Cause asthma reactions Mold Other (See comments) Low 11/26/2017 Causes asthma reactions Pollen Extracts Other (See comments) Low 11/26/2017 Causes asthma reactions Medications VENTOLIN HFA 90 mcg/actuation inhaler INL 2 PFS PO QID PRN 0 7 Active venlafaxine XR (EFFEXOR-XR) 150 mg 24 hr capsule TK 1 C PO D 0 Active venlafaxine XR (EFFEXOR-XR) 75 mg 24 hr capsule 0 Active lisinopriL (PRINIVIL,ZESTR IL) 2.5 mg tablet Take 1 tablet (2.5 mg total) by mouth daily 1 Active omeprazole (PriLOSEC) 40 mg capsule Take 1 capsule (40 mg total) by mouth daily 2 Active busPIRone (BUSPAR) 30 mg tablet Take 1 tablet (30 mg total) by mouth 2 (two) times a day 3 Active FLUoxetine (PROzac) 40 mg capsule Take 1 capsule (40 mg total) by mouth every morning 4 Active ezetimibe (ZETIA) 10 mg tablet Take 1 tablet (10 mg total) by mouth daily 4 Active ketoconazole (NIZORAL) 2 % cream APPLY TOPICALLY TO THE AFFECTED AREA TWICE DAILY 4 Active tamsulosin (FLOMAX) 0.4 mg extended release capsule Take 1 capsule (0.4 mg total) by mouth daily with dinner 30 capsule 1 4 Active dextroamphetami ne-amphetamine (AdderalL) 10 mg tablet Take 1 tablet (10 mg total) by mouth 2 (two) times a day 60 tablet 5 Active dextroamphetami ne-amphetamine XR (ADDERALL XR) 30 mg 24 hr capsule Take 1 capsule (30 mg total) by mouth every morning 30 capsule 5 Active dextroamphetami ne-amphetamine XR (ADDERALL XR) 30 mg 24 hr capsule Take 1 capsule (30 mg total) by mouth every morning 30 capsule 5 12/12/19 25 Discontinu ed(Reorder ) Active Problems Problem Noted Date Diagnosed Date Kidney stone on left side 05/30/2024 MAXINE (obstructive sleep apnea) 10/14/2023 Tonsillith 11/29/2017 Assessment & Plan (11/29/2017 1:21 PM CDT): Patient with notable tonsillith to the left tonsil. Patient states she first noticed this approximately 2 weeks ago. Patient states she attempted to remove it at home but was unable to due to her gag reflex. Attempted multiple interventions to remove the tonsillith for the patient in the office, however patient's gag reflex was extreme and she was not very cooperative. Patient would not open her mouth wide enough, keep her mouth open, stick her tongue out, or allow me to grasp her tongue with gauze resulting in my inability to remove the stone. Discussed with patient cause of tonsillith as well as remedies. Patient advised to use Peroxyl oral solution to aid in the removal of her tonsillith. Patient to follow up if she experiences any associated symptoms with her tonsillith. At this time surgical management is not recommended. Idiopathic hypersomnia without long sleep time 0 02/12/2017 Restless leg syndrome 02/12/2017 Social History Tobacco Use Types Packs/Day Years Used Date Smoking Tobacco: Never Smokeless Tobacco: Never Tobacco Cessation:Counseling Given: Not Answered Alcohol Use Standard Drinks/Week Comments No 0 (1 standard drink = 0.6 oz pur e alcohol) AUDIT-C Answer Date Recorded Q1: How often do you have a drink containing alcohol? Never 05/30/2024 Q2: How many drinks containi ng alcohol do you have on a typical day when you are drinking? Patient does not drink Q3: How often do you have si x or more drinks on one occasion? Never 05/30/2024 Personal Safety Answer Date Recorded Have you ever been in or are you currently in a harmful physical or emotional relationship or is someone making you feel afraid or unsafe? Denies 06/04/2024 Comments No Sex and Gender Information Value Date Recorded Sex Assigned at Not on file 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:12 PM REPAIRER CONTROLLER TESTER Gender Identity Not on file Sexual Orientation Not on file Last Filed Vital Signs Vital Sign Reading Time Taken Comments Blood Pressure 111/63 06/05/2024 2:00 AM REPAIRER CONTROLLER TESTER Pulse 99 06/05/2024 2:00 AM REPAIRER CONTROLLER TESTER Temperature 35.7 C (96.2 F) 06/04/2024 10:55 PM REPAIRER CONTROLLER TESTER Respiratory Rate 20 06/04/2024 10:55 PM REPAIRER CONTROLLER TESTER Oxygen Saturation 92% 06/05/2024 2:00 AM REPAIRER CONTROLLER TESTER Inhaled Oxygen Concentration - - Weight 74.8 kg (165 lb) 06/04/2024 10:55 PM REPAIRER CONTROLLER TESTER Height 152.4 cm (5') 06/04/2024 10:55 PM REPAIRER CONTROLLER TESTER Body Mass Index 32.22 06/04/2024 10:55 PM REPAIRER CONTROLLER TESTER Plan of Treatment Not on file Medical Devices Implanted Type Area Fashion Intern Device Identifier Shelf Expiration Date Model / Serial / Lot [employer] Heather Contour Vl 4.8fr 22-30cm Taper Tip Bladder Elio Low Profile Large Latex Free [id number] - [id number] Implanted:Qty: 1 on 05/31/2024 by Sarah Campuzano MD at [facility] Left: Ureter [employer] Heather 09/08/2026 [id number] / / [id number] Insurance Advance Directives For more information, please contact: [phone] * Full Code (Latest Code Status on File) Date Activated Date Inactivated Comments 05/30/2024 2:01 PM 06/01/2024 8:01 PM Care Teams Remelt Operator Relationship Specialty Start Date End Date Vanessa Zaidi MD PCP - General 09/18/16
--- OUTSIDE RECORDS SUMMARY | 2024-12-27 08:15 | XMS_ITS | Clinical Summary ---
Author Organization [facility] Address [address] [place] [address] Care Team Providers Care Java Engineer Name Role Phone Vanessa Zaidi MD Primary Care Provider [phone] Allergies Active Allergy Reactions Criticality Noted Date [...] time 0 02/12/2017 Restless leg syndrome 02/12/2017 Surgical History Surgery Date Site/Laterality Comments TUBAL LIGATION ESOPHAGOGASTRODUODENOSCOPY Medical History Medical History Date Comments Undifferentiated attention deficit disorder ADD Motion sickness Asthma GERD (gastroesophageal reflux disease) Seizures (HCC) at age 1 Depression Anxiety Family History Medical History Relation Name Comments Hypertension Mother Hypertension; Relation Name Status Comments Mother Social History Tobacco Use Types Packs/Day Years [...] on file 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:12 PM COLOR WORKER Gender Identity Not on file Sexual Orientation Not on file Obstetrics History Last Filed Vital Signs Vital Sign Reading Time Taken Comments Blood Pressure 111/63 06/05/2024 2:00 AM COLOR WORKER Pulse 99 06/05/2024 2:00 AM COLOR WORKER Temperature 35.7 C (96.2 F) 06/04/2024 10:55 PM COLOR WORKER Respiratory Rate 20 06/04/2024 10:55 PM COLOR WORKER Oxygen Saturation 92% 06/05/2024 2:00 AM COLOR WORKER Inhaled Oxygen Concentration - - Weight 74.8 kg (165 lb) 06/04/2024 10:55 PM COLOR WORKER Height 152.4 cm (5') 06/04/2024 10:55 PM COLOR WORKER Body Mass Index 32.22 06/04/2024 10:55 PM COLOR WORKER Plan of Treatment Health Maintenance Due Date Last Done Comments Cervical Cancer Screening 1988 Depression Screening 1988 Hepatitis C Screening 1988 DTaP/Tdap/Td Vaccine (1 - Tdap) 09/23/1999 Varicella Vaccines (1 of 2 - 13+ 2-dose series) 2001 Hepatitis B Screening 2006 Regular Well Visit/Exam 18-64 2006 Influenza Vaccine (Season Ended) 2025 HPV Vaccines Aged Out No longer eligi ble based on patient's age to complete this topic Pneumococcal vaccine <65 Aged Out No longer eligible based on patient's age to complete this topic Medical Devices Implanted Type Area Literacy Coach Device Identifier Shelf Expiration Date Model / Serial / Lot [employer] Heather Contour Vl 4.8fr 22-30cm Taper Tip Bladder Elio Low Profile Large Latex Free [id number] - [id number] Implanted:Qty: 1 on 05/31/2024 by Sarah Campuzano MD at [facility] Left: Ureter [employer] Heather 09/08/2026 [id number] / / [id number] Insurance [facility] Advance Directives For more information, please contact: [phone] * Full Code (Latest Code Status on File) Date Activated Date Inactivated Comments 05/30/2024 2:01 PM 06/01/2024 8:01 PM Care Teams Java Engineer Relationship Specialty Start Date End Date Vanessa Zaidi MD PCP - General 09/18/16
--- OUTSIDE RECORDS SUMMARY | 2024-12-27 08:15 | XMS_ITS | Clinical Summary ---
Author Organization [facility] Address [address] [place] [address] Phone Care Team Providers Care Private Wealth Advisor Name Role Phone Vanessa Zaidi MD Primary Care Provider [phone] Allergies Active Allergy Reactions Criticality Noted Date Comments Dog Epithelium (Canis Lupus Familiaris) Other (see Comments) Low 11/26/2017 Cause asthma reactions Molds & Smuts Other (see Comments) Low 11/26/2017 Causes asthma reactions Pollen Extract Other (see Comments) Low 11/26/2017 Causes asthma reactions Hydrocodone-Acetaminop hen Vomiting 06/03/2020 Medications albuterol 108 (90 Base) MCG/ACT Aerosol Solution INL 1 INHALATION PO Q 4 H PRF SOB OR WHZ 0 Active amphetamine-dex troamphetamine (ADDERALL) 10 MG Tablet Take 20 mg by mouth daily. 0 Active amphetamine-dex troamphetamine (ADDERALL XR) 30 MG CAPSULE SR 24 HR Take 30 mg by mouth daily. SPREADS OUT ADDERALL OVER 2 DOSES IN THE MORNING 0 Active Symbicort 160-4.5 MCG/ACT Aerosol USE 2 PUFFS BY MOUTH TWICE DAILY 0 Active naproxen (NAPROSYN) 500 MG Tablet Take 500 mg by mouth every 6 hours as needed. 8 Active venlafaxine (EFFEXOR-XR) 150 MG CAPSULE SR 24 HR Take 150 mg by mouth nightly. 0 Active venlafaxine (EFFEXOR-XR) 75 MG CAPSULE SR 24 HR Take 75 mg by mouth nightly. 0 Active famotidine (PEPCID) 20 MG Tablet Take 20 mg by mouth 2 times daily. Active oxybutynin (DITROPAN) 5 MG Tablet Take 1 Tab by mouth 2 times daily. 30 Tab 1 Active Active Problems Problem Noted Date Diagnosed Date Renal stone 07/26/2020 Family History Medical History Relation Name Comments Hypertension Mother Colon Cancer Paternal Grandfather Relation Name Status Comments Father Alive Mother Alive Paternal Grandfather Social History Tobacco Use Types Packs/Day Years Used Date Smoking Tobacco: Never Smokeless Tobacco: Never Tobacco Cessation:Counseling Given: No Alcohol Use Standard Drinks/Week Comments Never 0 (1 standard drink = 0.6 oz pur e alcohol) AUDIT-C Answer Date Recorded Q1: How often do you have a drink containing alc ohol? Never 06/03/2020 Average Number of Drinks Not on file 020 Frequency of Binge Drinking Not on file 05/21 Sexually Active Control Partners Comments Yes Male Comments No Sex and Gender Information Value Date Recorded Sex Assigned at Not on file Legal Sex Female 3:23 PM LAW INSTRUCTOR Gender Identity Not on file Sexual Orientation Not on file Last Filed Vital Signs Vital Sign Reading Time Taken Comments Blood Pressure 150/90 08/12/2020 11:15 AM LAW INSTRUCTOR Pulse 101 08/12/2020 11:15 AM LAW INSTRUCTOR Temperature 36.7 C (98 F) 08/12/2020 11:15 AM LAW INSTRUCTOR Respiratory Rate 16 07/26/2020 12:05 PM LAW INSTRUCTOR Oxygen Saturation 98% 08/12/2020 11:15 AM LAW INSTRUCTOR Inhaled Oxygen Concentration - - Weight 78.1 kg (172 lb 3.2 oz) 08/12/2020 11:15 AM LAW INSTRUCTOR Height 152.4 cm (5') 08/12/2020 11:15 AM LAW INSTRUCTOR Body Mass Index 33.63 08/12/2020 11:15 AM LAW INSTRUCTOR Plan of Treatment Health Maintenance Due Date Last Done Comments Hepatitis C Virus (HCV) Screening 1988 TdaP Immunization 1988 Human Papillomavirus (HPV) Immunization (1 - 3-dose series) 09/23/2003 Hepatitis B Immunization (1 of 3 - 19+ 3-dose series) 09/23/2007 Pap Smear 2009 Cervical Cancer Screening (CCS) 2018 HPV/Cotest 2018 SARS-COV-2 Immunization ( season) 2024 11/02/2020, 10/12/2020 Influenza Immunization (Seas on Ended) 2025 Respiratory Syncytial Virus (RSV) Immunization (Adult) (1 - 1-dose 75+ series) 09/23/2063 Meningococcal Immunization (ACWY) Aged Out No longer eligible b ased on patient's age to complete this topic Pneumococcal Immunization Combined Aged Out No longer eligible b ased on patient's age to complete this topic Rotavirus Immunization Aged Out No lo nger eligible based on patient's age to complete this topic Medical Devices Implanted Type Area Stationary Plant Operators Device Identifier Shelf Expiration Date Model / Serial / Lot Stent Ureteral 6fr 2.1fr 24cm 2 Pigtail Curve 2 Durometer Taper Tip Loprfl Graduated Polaris Ultra - [id number] Implanted:Qty : 1 on 07/26/2020 by Maxine Leon MD at [facility] IMPLANT Left: Ureter [employer] 01/30/2023 [id number] 0 / [id number] 0 / [id number] Explanted Type Area Stationary Plant Operators Device Identifier Shelf Expiration Date Model / Serial / Lot Stent Ureteral 6fr 2.1fr 22cm 2 Pigtail Curve 2 Durometer Taper Tip Loprfl Graduated Polaris Ultra - [id number] Explanted:Qty : 1 on 07/26/2020 at [facility] IMPLANT Left: Ureter [employer] 10/23/2021 [id number] 0 / [id number] 0 / [id number] Insurance MEDICAID [place] Care Teams Private Wealth Advisor Relationship Specialty Start Date End Date Vanessa Zaidi MD [address] [place] [address] PCP - General Family Medicine 06/03/20
== END 2024-12-27 08:12 | disposition home or self-care (01) ==
PROVIDERS: PCP Family Medicine; Visit Provider Student in an Organized Health Care Education/Training Program
DX: R59.0 Localized enlarged lymph nodes (principal); J45.909 Unspecified asthma, uncomplicated; M25.511 Pain in right shoulder; R91.1 Solitary pulmonary nodule
CPT/HCPCS: 71046; 73030; 76882

== ENCOUNTER 2025-02-07 09:50 | Outpatient (CLI) | payer OTHER, SELFPAY ==
--- OUTSIDE RECORDS SUMMARY | 2011-02-23 19:00 | XMS_ITS | Continuity of Care Document ---
Author Organization [facility] Address [address] [place] [address] Phone Care Team Providers Care Size Stamper Name Role Phone Ean Paredes MD Unavailable Unavailable Medications Medication Instructions Dosage Effective Dates (start - stop) Status Comments SYMBICORT 160-4.5 MCG INHALER 2 BID - Active NASONEX 50 MCG NASAL SPRAY 2 QD - Active SYMBICORT 160-4.5 MCG INHALER 2 BID - Active PROAIR HFA 90 MCG INHALER 2 Q 4-6HR - Active Advance Directives Directive Yes / No Effective Date File Name No Information Encounters Encounter Description Practice Location Reason(s) For Visit Diagnoses Date Provider Providers Copied on Encounter [facility], [address], [place], [place], [id number], tel:[phone] [facility] No Information Reggie Mckoy. [address], [id number], . tel:[phone] [facility], [address], [place], [id number], tel:[phone] [facility] No Information Reggie Mckoy. [address], [id number], [place]. tel:[phone] [facility], [address], [place], [place], [id number], tel:[phone] [facility] INTRINSIC ASTHMA NOSALLERGIC RHINITIS NEC Reggie Mckoy. [address], [id number], [place]. tel:[phone] [facility], [address], [place], [place], [id number], [place] tel:[phone] [facility] INT ASTHMA W (AC) EXAC Reggie Mckoy. [address], [id number], [place]. tel:[phone] Family History Family Member Type Diagnosis Age At Onset No Information Payers Payer name Insurance type Covered green party ID Authoriza tion(s) No Information Social History Type Description Quantity Date Captured Comments Sex Female Smoking Status No Information Chief Complaint And Reason For Visit No Information Reason For Referral Reason For Referral No Information History Of Present Illness Encounter Date Complaint History Of Prese nt Illness No Information Functional Status Date Functional Assessmen t No Information Instructions Date Instruction Additional Infor mation No Information Assessments Type Assessment Date No Information Patient Care Teams Name Effective Dates (start - stop) Status Members No Information
--- NOTE | ~2025-02-07 | US_ITS ---
EXAMINATION: US biopsy lymph node DATE: 02/07/2025 11:31 INDICATION: Localized swelling, mass or lump at the left axilla with abnormal ultrasound. TECHNIQUE: The procedure including the risks and benefits was discussed with the patient. Risks discussed included bleeding and infection. The patient understood the risks and agreed to proceed. The skin overlying the left axilla was prepped and draped in usual sterile fashion. Anesthetic was administered with 1% lidocaine subcutaneously. An 18 gauge core biopsy needle was advanced under continuous ultrasound observation to the lesion of interest. 3 core biopsy specimens were obtained. The needle was removed and the entry site was cleaned and dressed. Post procedure ultrasound demonstrated no hemorrhage. FINDINGS: Ultrasound images demonstrate a 1.8 x 0.4 x 1.7 cm hypoechoic superficial subcutaneous mass at the left axilla corresponding to region of concern on prior ultrasound. Again seen are a few deeper enlarged left axillary lymph nodes with prominent central fatty jeni, the largest measuring 4.1 x 2.0 x 1.4 similar. Enlarged lymph nodes again with large central fatty jeni be seen on CT studies dating back to 01/28/2018 at which time the largest left axillary lymph node measured 2.7 x 2.3 x 1.5 cm. Final images demonstrate biopsy needle advanced into the superficial subcutaneous mass of concern. IMPRESSION: 1. Successful Ultrasound-guided biopsy of a 1.8 cm hypoechoic superficial subcutaneous mass at the left axilla. Reviewed, dictated and finalized at location A. IMPRESSION: 1. Successful Ultrasound-guided biopsy of a 1.8 cm hypoechoic superficial subcu taneous mass at the left axilla.
--- OUTSIDE RECORDS SUMMARY | 2025-02-07 09:59 | XMS_ITS | Clinical Summary ---
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 Gender Identity Not on file Sexual Orientation Not on file Last Filed Vital Signs Vital Sign Reading Time Taken Comments Blood Pressure 150/90 08/12/2020 11:15 AM JUNIOR MECHANICAL ENGINEER Pulse 101 08/12/2020 11:15 AM JUNIOR MECHANICAL ENGINEER Temperature 36.7 C (98 F) 08/12/2020 11:15 AM JUNIOR MECHANICAL ENGINEER Respiratory Rate 16 07/26/2020 12:05 PM JUNIOR MECHANICAL ENGINEER Oxygen Saturation 98% 08/12/2020 11:15 AM JUNIOR MECHANICAL ENGINEER Inhaled Oxygen Concentration - - Weight 78.1 kg (172 lb 3.2 oz) 08/12/2020 11:15 AM JUNIOR MECHANICAL ENGINEER Height 152.4 cm (5') 08/12/2020 11:15 AM JUNIOR MECHANICAL ENGINEER Body Mass Index 33.63 08/12/2020 11:15 AM JUNIOR MECHANICAL ENGINEER Plan of Treatment Health Maintenance Due Date Last Done Comments Hepatitis C Virus (HCV) Screening 1988 TdaP Immunization 1988 Hepatitis B Immunization (1 of 3 - 19+ 3-dose series) 09/23/2007 Pap Smear 2009 Human Papillomavirus (HPV) Immunization (1 - 3-dose SCDM series) 09/23/2015 Cervical Cancer Screening (CCS) 2018 HPV/Cotest 2018 SARS-COV-2 Immunization ( season) 2024 11/02/2020, 10/12/2020 Influenza Immunization (#1) 2025 Respiratory Syncytial Virus (RSV) Immunization (Adult) [...] this topic Medical Devices Implanted Type Area Loss Prevention Supervisor Device Identifier Shelf Expiration Date Model / Serial / Lot Stent Ureteral 6fr 2.1fr 24cm 2 Pigtail Curve 2 Durometer Taper Tip Loprfl Graduated Polaris Ultra - [id number] Implanted:Qty : 1 on 07/26/2020 by Maxine Leon MD at [facility] IMPLANT Left: Ureter [employer] 01/30/2023 [id number] / [id number] / [id number] Explanted Type Area Loss Prevention Supervisor Device Identifier Shelf Expiration Date Model / Serial / Lot Stent Ureteral 6fr 2.1fr 22cm 2 Pigtail Curve 2 Durometer Taper Tip Loprfl Graduated Polaris Ultra - [id number] Explanted:Qty : 1 on 07/26/2020 at [facility] IMPLANT Left: Ureter [employer] 10/23/2021 [id number] / [id number] / [id number] Insurance MEDICAID [place] Care Teams Day Habilitation Specialist Relationship Specialty Start Date End Date Vanessa Zaidi MD [address] [id number] PCP - General Family Medicine 06/03/20
--- OUTSIDE RECORDS SUMMARY | 2025-02-07 09:59 | XMS_ITS | Clinical Summary ---
Author Organization [facility] Address [address] [place] [address] Care Team Providers Care Machine Maintenance Servicer Name Role Phone Vanessa Zaidi MD Primary Care Provider [phone] Allergies Active Allergy Reactions Criticality Noted Date Comments Dog Dander Other (See comments) Low 11/26/2017 Cause asthma reactions Mold Other (See comments) Low 11/26/2017 Causes asthma reactions Pollen Extracts Other (See comments) Low 11/26/2017 Causes asthma reactions Medications VENTOLIN HFA 90 mcg/actuation inhaler INL 2 PFS PO QID PRN 0 01/28/20 17 Active venlafaxine XR (EFFEXOR-XR) 150 mg 24 hr capsule TK 1 C PO D 04/11/20 20 Active venlafaxine XR (EFFEXOR-XR) 75 mg 24 hr capsule 04/18/20 20 Active lisinopriL (PRINIVIL,ZEST RIL) 2.5 mg tablet Take 1 tablet (2.5 mg total) by mouth daily 11/02/19 21 Active omeprazole (PriLOSEC) 40 mg capsule Take 1 capsule (40 mg total) by mouth daily 03/03/20 22 Active busPIRone (BUSPAR) 30 mg tablet Take 1 tablet (30 mg total) by mouth 2 (two) times a day 01/05/20 23 Active FLUoxetine (PROzac) 40 mg capsule Take 1 capsule (40 mg total) by mouth every morning 08/25/19 24 Active ezetimibe (ZETIA) 10 mg tablet Take 1 tablet (10 mg total) by mouth daily 03/20/20 24 Active ketoconazole (NIZORAL) 2 % cream APPLY TOPICALLY TO THE AFFECTED AREA TWICE DAILY 04/24/20 24 Active tamsulosin (FLOMAX) 0.4 mg extended release capsule Take 1 capsule (0.4 mg total) by mouth daily with dinner 30 capsule 1 06/01/20 24 Active dextroamphetam ine-amphetamin e XR (ADDERALL XR) 30 mg 24 hr capsule Take 1 capsule (30 mg total) by mouth every morning 30 capsule 01/14/20 25 Active dextroamphetam ine-amphetamin e (AdderalL) 10 mg tablet Take 1 tablet (10 mg total) by mouth 2 (two) times a day 60 tablet 01/14/20 25 Active dextroamphetam ine-amphetamin e (AdderalL) 10 mg tablet Take 1 tablet (10 mg total) by mouth 2 (two) times a day 60 tablet 10/17/19 25 025 Discontinued dextroamphetam ine-amphetamin e XR (ADDERALL XR) 30 mg 24 hr capsule Take 1 capsule (30 mg total) by mouth every morning 30 capsule 12/12/19 25 025 Discontinued(Re order) Active Problems Problem Noted Date Diagnosed Date [...] on file 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:12 PM WAITER WAITRESS Gender Identity Not on file Sexual Orientation Not on file Obstetrics History Last Filed Vital Signs Vital Sign Reading Time Taken Comments Blood Pressure 111/63 06/05/2024 2:00 AM WAITER WAITRESS Pulse 99 06/05/2024 2:00 AM WAITER WAITRESS Temperature 35.7 C (96.2 F) 06/04/2024 10:55 PM WAITER WAITRESS Respiratory Rate 20 06/04/2024 10:55 PM WAITER WAITRESS Oxygen Saturation 92% 06/05/2024 2:00 AM WAITER WAITRESS Inhaled Oxygen Concentration - - Weight 74.8 kg (165 lb) 06/04/2024 10:55 PM WAITER WAITRESS Height 152.4 cm (5') 06/04/2024 10:55 PM WAITER WAITRESS Body Mass Index 32.22 06/04/2024 10:55 PM WAITER WAITRESS Plan of Treatment Health Maintenance Due Date Last Done Comments Cervical Cancer Screening 1988 Depression Screening 1988 Hepatitis C Screening 1988 DTaP/Tdap/Td Vaccine (1 - Tdap) 09/23/1999 Varicella Vaccines (1 of 2 - 13+ 2-dose series) 2001 Hepatitis B Screening 2006 Regular Well Visit/Exam 18-64 2006 HPV Vaccines (1 - 3-dose SCD M series) 09/23/2015 Influenza Vaccine (#1) 2025 Pneumococcal vaccine <65 Aged Out No longer eligible based on patient's age to complete this topic Medical Devices Implanted Type Area Dry Cell Sealer Device Identifier Shelf Expiration Date Model / Serial / Lot [employer] Contour Vl 4.8fr 22-30cm Taper Tip Bladder Elio Low Profile Large Latex Free [id number] - [id number] Implanted:Qty: 1 on 05/31/2024 by Sarah Campuzano MD at [facility] Left: Ureter [employer] 09/08/2026 [id number] / / [id number] Insurance [facility] Advance Directives For more information, please contact: [phone] * Full Code (Latest Code Status on File) Date Activated Date Inactivated Comments 05/30/2024 2:01 PM 06/01/2024 8:01 PM Care Teams Machine Maintenance Servicer Relationship Specialty Start Date End Date Vanessa Zaidi MD PCP - General 09/18/16
--- NOTE | 2025-02-07 11:11 | S_PTH ---
PATIENT: Wendi De La Vega LOC: [facility] #:[id number] AGE/SX: 34/F ROOM: RE02/07/[address]: Milka Ernandez PA-C : 1990 BED: DIS: 02/07/2025 SPEC #: [id number] RECD: 02/07/25 11:16 STATUS: DAMON REBrian #: [id number] HERNAN: 02/07/25 11:[address]: Milka Ernandez DEPT: [facility] Surgical RECD BY: Patricia Watkins ENTERED: 02/07/25 11:17 SP TYPE: Surgical OTHR DR: Vanessa Zaidi, Tissues: A - Lymph Node Biopsy Procedures: Unstained Slides Hematoxylin and Eosin Stain Gross and Microscopic Level 4
== END 2025-02-07 09:51 | disposition home or self-care (01) ==
PROVIDERS: PCP Family Medicine; Visit Provider Student in an Organized Health Care Education/Training Program
DX: L73.2 Hidradenitis suppurativa (principal)
CPT/HCPCS: 38505; 76942; 88305